=== PATIENT | male | born 1950 | race Two or more races ===

== ENCOUNTER 2019-05-20 16:19 | Inpatient (IN) | payer OTHER ==
[~2019-05-20] VITALS: Ht 165.1 cm; Wt 77.1 kg
[2019-06-01] MEDS ORDERED: TAMS0.4C PO (11:57)
[2019-06-01] MEDS ORDERED: TOPROL XL100 M1 PO (11:57)
[2019-06-01] MEDS ORDERED: ALTACE10 MG PO (11:57)
[2019-06-01] MEDS ORDERED: LOMOTRIGINE PO (11:58)
[2019-06-22] MEDS ORDERED: LAMICTAL200 MG PO (08:17)
[2019-06-22] MEDS ORDERED: RAMIPRIL5 MG PO (08:17)
[2019-06-25] MEDS ORDERED: INTESTINEX680 M1 PO (09:28)
[2019-06-25] MEDS ORDERED: ZITHROMAX200 MG PO (09:28)
[2019-06-25] MEDS ORDERED: OMEPRAZOLE20 MG PO (09:28)
[2019-06-25] MEDS ORDERED: TYLENOL EXTRA500 MG PO (09:28)
== END 2019-06-25 10:29 | disposition home or self-care (01) | DRG 330 ==
LOC: SURG 06-01 11:45 → SURH 06-19 06:47 → O/R 06-19 06:47 → SURH 06-19 14:00
PROVIDERS: ADMIT Surgery
PROC: 0DJD8ZZ Inspection of Lower Intestinal Tract, Via Natural or Artificial Opening Endoscopic (ICD-10-PCS; 2019-06-19)
PROC: 0DTN4ZZ Resection of Sigmoid Colon, Percutaneous Endoscopic Approach (ICD-10-PCS; principal; 2019-06-19 11:15)
DX: K57.80 Diverticulitis of intestine, part unspecified, with perforation and abscess without bleeding (principal); J90 Pleural effusion, not elsewhere classified; R31.0 Gross hematuria; I70.0 Atherosclerosis of aorta; R10.32 Left lower quadrant pain; I11.9 Hypertensive heart disease without heart failure; N40.0 Benign prostatic hyperplasia without lower urinary tract symptoms; F41.1 Generalized anxiety disorder

== ENCOUNTER 2021-06-26 07:38 | Day surgery (SDC) | payer OTHER ==
[~2021-06-26 07:38] MED LIST: ALTACE10 MG PO; INTESTINEX680 M1 PO; LAMICTAL200 MG PO; LOMOTRIGINE PO; OMEPRAZOLE20 MG PO; RAMIPRIL5 MG PO; TAMS0.4C PO; TOPROL XL100 M1 PO; TYLENOL EXTRA500 MG PO; ZITHROMAX200 MG PO
== END 2021-06-26 13:35 | disposition home or self-care (01) ==
LOC: AMB-ENDOS 07:38
PROVIDERS: ATTEND Surgery
DX: K57.32 Diverticulitis of large intestine without perforation or abscess without bleeding (principal); Z20.822 Contact with and (suspected) exposure to COVID-19